=== PATIENT | female | born 1965 | race Caucasian/White ===

== ENCOUNTER 2018-10-17 15:15 | Emergency (ER) | payer BC ==
[~2018-10-17] VITALS: Ht 167.6 cm; Wt 78.5 kg
[2018-10-17] MEDS ORDERED: NKM (15:30)
[2018-10-17 15:37] VITALS: BP 122/86
[2018-10-17] MEDS ORDERED: Albuterol ud Inhalation HHN SCH (15:45)
[2018-10-17] MEDS ORDERED: Ipratropium 0.02% Inh Soln 2.5ml UD HHN SCH (15:45)
--- NOTE | 2018-10-17 16:07 | Emergency Room Report ---
History of Present Illness General Chief Complaint: Upper Respiratory Illness Source: Patient Present Illness HPI 53-year-old female presents ED for evaluation. Patient states she's been experiencing cough the last 3 weeks. Cough is dry. Feels chest tightness. Denies fevers or chills. Denies chest pain. Denies sick contacts or recent travel. States she was prescribed Z-Migue did not improve her symptoms much. Admits to history of smoking 1 cigarette once a week. Denies drug use. No other aggravating relieving factors. Denies any other associated symptoms Allergies: Coded Allergies: No Known Allergies (Unverified , 10/17/18) Patient History Past Medical History: none Past Surgical History: none Pertinent Family History: none Social History: Reports: smoking; Denies: alcohol use, drug use Now: No Immunizations: UTD Reviewed Nursing Documentation: PMH: Agreed; PSxH: Agreed Nursing Documentation-PMH Past Medical History: No Stated History Review of Systems All Other Systems: negative except mentioned in HPI Physical Exam Vital Signs Date Time Temp Pulse Resp B/P (MAP) Pulse Ox O2 Delivery O2 Flow Rate FiO2 10/17/18 15:27 98.6 79 17 117/74 97 Room Air 10/17/18 15:56 21 Sp02 EP Interpretation: reviewed, normal General Appearance: no apparent distress, alert, GCS 15, non-toxic Head: normocephalic, atraumatic Eyes: bilateral eye normal inspection, bilateral eye PERRL ENT: hearing grossly normal, normal pharynx, no angioedema, normal voice Neck: full range of motion, supple/symm/no masses Respiratory: decreased breath sounds, speaking full sentences, wheezing Cardiovascular #1: regular rate, rhythm, no edema Cardiovascular #2: 2+ carotid (R), 2+ carotid (L), 2+ radial (R), 2+ radial (L) , 2+ dorsalis pedis (R), 2+ dorsalis pedis (L) Gastrointestinal: normal bowel sounds, non tender, soft, non-distended, no guarding, no rebound Rectal: deferred Genitourinary: normal inspection, no CVA tenderness Musculoskeletal: back normal, gait/station normal, normal range of motion, non- tender Neurologic: alert, oriented x3, responsive, motor strength/tone normal, sensory intact, speech normal Psychiatric: judgement/insight normal, memory normal, mood/affect normal, no suicidal/homicidal ideation Reflexes: 3+ bicep (R), 3+ bicep (L), 3+ tricep (R), 3+ tricep (L), 3+ knee (R) , 3+ knee (L) Skin: normal color, no rash, warm/dry, well hydrated Lymphatic: no adenopathy Medical Decision Making Diagnostic Impression: Primary Impression: Bronchitis ER Course Hospital Course 53-year-old female presents to ED complaining of cough, chest tightness Differential diagnoses include: URI, bronchitis, asthma/COPD, pneumonia Clinical course Patient placed on stretcher. After initial history and physical I ordered CXR, prednisone and nebulizer treatment. Chest x-ray shows no focal consolidation or other acute process On reassessment patient states she feels better. Wheezing improved. Increased breath sounds. Consistent with bronchitis. Will discharged to home with albuterol inhaler and Flovent inhaler. Patient prefers not to take oral steroids. Also prescribed cough medication Discussed case with Dr. Gale who agrees with plan Diagnosis - bronchitis Stable and discharged home with prescriptions for Rx albuterol, flovent, promethazine/codeine. Instructed to followup with PMD. Return to ED if symptoms recur or worsen Chest X-Ray Diagnostic Results Chest X-Ray Diagnostic Results : Chest X-Ray Ordered: Yes # of Views/Limited/Complete: 1 View Indication: Shortness of Breath EP Interpretation: Yes Interpretation: no consolidation, no effusion, no pneumothorax, no acute cardiopulmonary disease Impression: No acute disease Electronically Signed by: Electronically signed by Aubrey Vogel MD Last Vital Signs Date Time Temp Pulse Resp B/P (MAP) Pulse Ox O2 Delivery O2 Flow Rate FiO2 10/17/18 15:56 65 18 99 Room Air 21 10/17/18 15:27 98.6 117/74 Status: improved Disposition: HOME, SELF-CARE Condition: Stable Scripts Codeine/Promethazine Hcl* (PROMETHAZINE-CODEINE SYRUP*) 118 Ml Syrup 5 ML ORAL Q6H PRN for For Cough, #118 ML 0 Refills Prov: Aubrey Vogel MD 10/17/18 Fluticasone Propionate (Flovent Hfa) 10.6 Gm Aer.w.adap 2 PUFFS INH BID, #1 EA 0 Refills Prov: Aubrey Vogel MD 10/17/18 Albuterol Sulfate* (ALBUTEROL SULFATE MDI*) 8.5 Gm Hfa.aer.ad 2 PUFF INH Q6H, #1 EA 0 Refills Prov: Aubrey Vogel MD 10/17/18 Aubrey Vogel MD Oct 17, 2018 16:07
[2018-10-17] MEDS ORDERED: PROMETHAZINE-C118 M1 ORAL (16:40)
[2018-10-17] MEDS ORDERED: ALBUTEROL SULF8.5 GM INH (16:40)
[2018-10-17] MEDS ORDERED: FLOVENT2 PUFF1 INH (16:40)
[2018-10-17 16:48] VITALS: BP 133/79
== END 2018-10-17 16:48 | disposition home or self-care (01) ==
LOC: EMR 16:30
DX: J20.9 Acute bronchitis, unspecified (principal); F17.210 Nicotine dependence, cigarettes, uncomplicated
CPT/HCPCS: 71045; 94640; 94664; 99284; J7512